=== PATIENT | male | born 1980 | race Hispanic/Latino ===

== ENCOUNTER 2020-09-03 09:25 | Emergency (ER) | payer SELFPAY ==
[2020-09-03] MEDS ORDERED: Lidocaine 1% w/Epinephrine 1:100K 20 ML VIAL ONE (10:09)
== END 2020-09-03 10:44 | disposition home or self-care (01) ==
LOC: ERS 09:25
DX: N61.1 Abscess of the breast and nipple (principal); F17.210 Nicotine dependence, cigarettes, uncomplicated
CPT/HCPCS: 10060

== ENCOUNTER 2020-09-06 12:48 | Emergency (ER) | payer OTHER, SELFPAY | END 2020-09-06 13:20 | disposition home or self-care (01) | LOC: ERS 12:48 | DX: N64.4 Mastodynia (principal); F17.210 Nicotine dependence, cigarettes, uncomplicated; Z79.899 Other long term (current) drug therapy | CPT/HCPCS: 99281 ==

== ENCOUNTER 2021-04-19 16:16 | Emergency (ER) | payer SELFPAY ==
[~2021-04-19 16:16] MED LIST: Iopamidol-370 76% 500 ML 1 ML ONE
[2021-04-19] MEDS ORDERED: Ondansetron PF 4 MG/2 ML Vial ONE (16:28)
[2021-04-19] MEDS ORDERED: Morphine 4 MG/ML VIAL ONE (16:28)
[2021-04-19] MEDS ORDERED: Lidocaine 1% w/Epinephrine 1:100K 20 ML VIAL ONE (16:56)
[2021-04-19 17:47] LABS: Hemoglobin 16.9 g/dL (14.0-18.0); Mean Corpuscular HGB CONC 34.9 g/dL (32.0-36.0); Mean Corpuscular Hemoglobin 34.5 pg (27.0-31.0); Mean Corpuscular Volume 98.9 fL (78.0-98.0); Mean Platelet Volume 8.2 fL (7.4-10.4); Platelet Count 263 thou/uL (130-400); RBC Distribution Width 12.6 % (11.5-14.5); Red Blood Cell (RBC) Count 4.91 mill/uL (4.70-6.10)
[2021-04-19 18:02] LABS: ALT (SGPT) 69 U/L (8-55); AST (SGOT) 84 U/L (5-34); Albumin 3.5 g/dL (3.5-5.0); Alkaline Phosphatase 69 U/L (40-110); Anion Gap 16 mmol/L (10-20); BUN (Urea Nitrogen) 12 mg/dL (8.9-20.6); Bilirubin, Total 0.5 mg/dL (0.2-1.2); Calc. Creatinine Clearance 0 mL/min (70-130); Calcium 8.3 mg/dL (7.8-10.44); Carbon Dioxide 16 mmol/L (22-29); Chloride 106 mmol/L (98-107); Globulin 3.2 g/dL (2.4-3.5); Glucose 115 mg/dL (70-105); Lipase 51 U/L (8-78); Potassium 4.2 mmol/L (3.5-5.1); Protein, Total 6.7 g/dL (6.0-8.3); Sodium 134 mmol/L (136-145)
[2021-04-19 18:09] LABS: Band 20 % (5-11); Eosinophils 2 % (0-10); Lymphocytes 13 % (21-51); MDiff Complete? YES; Monocytes 5 % (0-10); Neutrophil 54 % (42-75); Platelet Morphology Comment Appears Adequate; Reactive Lymphocytes 6 % (0-10)
[2021-04-19] MEDS ORDERED: Boostrix 0.5 ML (Tdap) VIAL ONE (18:17)
== END 2021-04-19 19:25 | disposition home or self-care (01) ==
LOC: ERS 16:16
DX: S01.81XA Laceration without foreign body of other part of head, initial encounter (principal); S92.331A Displaced fracture of third metatarsal bone, right foot, initial encounter for closed fracture; R07.89 Other chest pain; F17.210 Nicotine dependence, cigarettes, uncomplicated; W14.XXXA Fall from tree, initial encounter
CPT/HCPCS: 12014; 36415; 70450; 71260; 72125; 74177; 80053; 83690; 85025; 90471; 90715; 93005; 96374; 96375; J2270; J2405; Q9967